=== PATIENT | male | born 1985 | race Caucasian/White ===

== ENCOUNTER 2020-02-06 14:11 | Outpatient (CLI) | payer BC ==
--- NOTE | 2020-02-06 14:52 | ULT ---
US Abdominal History: Abdominal pain. Comparison: None. Findings: Real-time grayscale and color evaluation of the abdomen was performed. Visualized portion of the aorta, IVC and pancreas are unremarkable. Hepatic echotexture is normal wit hout mass. Liver measures 13.1 cm in length. Gallbladder wall thickness is normal. No pericholecystic fluid. Main portal vein is patent with antegrade flow. Common bile duct is normal measuring 3 mm. Right kidney measures 10.6 x 5.8 x 5.8 cm without mass, hydronephrosis or abnormal calcifications. Left kidney measures 9.9 x 5.3 x 4.7 cm without mass, hydronephrosis or abnormal calcifications. Sple en measures 11.6 cm in length. Impression: Normal abdominal ultrasound.
== END 2020-02-06 14:12 | disposition home or self-care (01) ==
LOC: BICULT 14:11
PROVIDERS: ATTEND Physician Assistant Medical
DX: R10.12 Left upper quadrant pain (principal); R10.13 Epigastric pain; R11.0 Nausea; R19.7 Diarrhea, unspecified; Z86.010 Personal history of colon polyps
CPT/HCPCS: 93975